=== PATIENT | female | born 1995 | race Caucasian/White ===

== ENCOUNTER 2019-04-29 07:18 | Observation (INO) | payer OTHER ==
[~2019-04-29] VITALS: Ht 172.7 cm; Wt 122.6 kg
[2019-04-29] VITALS (12 sets, daily range): BP systolic 110–140; BP diastolic 53–66; PULSE 64–96; TEMP 97.9–98.2
[2019-04-29 07:56] LABS: COLLECTION METHOD CLEAN CATCH
[2019-04-29 07:59] LABS: BASO % 0.4 % (0.0-2.0); EOS # 0.2 (0.0-0.7); EOS % 1.9 % (0-4.0); GRAN # 4.6 (1.4-6.5); GRAN % 55.3 % (42.2-75.2); HEMATOCRIT 38.3 % (37.0-47.0); HEMOGLOBIN 12.8 g/dl (12.5-16.0); LYMPH # 2.6 (1.2-3.4); LYMPH % 31.8 % (20.0-51.0); MEAN CELL VOLUME 87 fl (80.0-100.0); MEAN CORPUSCULAR HEMOGLOBIN 29 pg (27.0-31.0); MEAN CORPUSCULAR HGB CONC 33 g/dl (33.0-37.0); MEAN PLATELET VOLUME 9.7 fl (7.4-10.4); MONO # 0.9 (0.1-0.6); MONO % 10.4 % (1.7-9.3); PLATELET COUNT 231 K/mm3 (130-400); RED BLOOD COUNT 4.38 M/mm3 (4.10-5.30); REDCELL DISTRIBUTION WIDTH-CV 12.8 % (11.5-14.5)
[2019-04-29 08:08] LABS: ALBUMIN 4.3 gm/dL (3.5-5.0); BILIRUBIN,TOTAL 0.2 mg/dL (0.0-1.0); CALCIUM 9.6 mg/dL (8.4-10.2); CREATININE, serum 0.74 (0.52-1.25); POTASSIUM 3.7 mmol/L (3.4-5.0); TOTAL PROTEIN 7.6 gm/dL (6.4-8.2)
[2019-04-29 08:08] LABS: MUCOUS Present /lpf; PH 6 (5-8); URINE APPEARANCE Hazy; URINE BACTERIA None Seen /hpf; URINE BILIRUBIN Negative (NEGATIVE); URINE BLOOD Negative (NEGATIVE); URINE COLOR Yellow; URINE GLUCOSE Negative (NEGATIVE); URINE KETONE Negative (NEGATIVE); URINE LEUKOCYTE ESTERASE Negative (NEGATIVE); URINE NITRATE Negative (NEGATIVE); URINE PROTEIN(semi-quant) Negative (NEGATIVE); URINE RBC 0-2 /hpf; URINE UROBILINOGEN Negative (NEGATIVE)
--- NOTE | 2019-04-29 12:01 | NUR ---
Patient arrived to unit from ED. Alert and oriented with VSS. Patient c/o severe abdominal pain. PRN morphine given to patient. Patient resting in bed with NS at 125 and levaquin 100. Boyfriend in room with patient. No concerns at this time. Call light within reach, will continue to monitor
--- NOTE | 2019-04-29 17:22 | NUR ---
Pt arrived from PACU at 1715. Pt awake and alert and oriented. VSS. Denies pain at this time. States she is sleepy. 4lap sites. CD&I and covered with swiftset. Denies needs at this time. Call light within reach, will continue to monitor
--- NOTE | 2019-04-29 18:31 | NUR ---
Pt tolerating general diet well. She is now resting in bed. Call light within reach, will continue to monitor
--- NOTE | 2019-04-29 20:50 | NUR ---
Medicated with Motrin 600mg po for pain to abdomen 10/11. Has been up to bathroom to void x1.
--- NOTE | 2019-04-29 23:25 | NUR ---
Patient has been up in hallways ambulating with steady gait. Medicated with Aquilla 5/325mg 1 tab po for 4/10 pain to abdomen. Lap sites x4 dry/glued. Taking oral fluids well.
[2019-04-30 03:26] VITALS: BP 105/44; PULSE 75; TEMP 98.7
--- NOTE | 2019-04-30 05:00 | NUR ---
Patient denies need for pain meds at this time.
--- NOTE | 2019-04-30 07:06 | NUR ---
REPORT FROM AARON [facility]ILL.
[2019-04-30 07:34] VITALS: BP 111/55; PULSE 66; TEMP 97.7
[2019-04-30 11:39] VITALS: BP 105/51; PULSE 76; TEMP 97.9
[2019-04-30] MEDS ORDERED: NORCO 325 MG-51 TAB PO (11:43)
--- NOTE | 2019-04-30 12:28 | NUR ---
DR. DEL TORO IN TO DISCHARGE PT. NEW ORDERS RECIEVED. PT DOING WELL, VSS, PT HAS HAD MINIMAL PAIN. DISCHARGE INSTRUCTIONS PROVIDED AND QUESTIONS ANSWERED. PT GOING HOME AFTER BOYFRIEND RETURNS.
--- NOTE | 2019-04-30 13:31 | NUR ---
PT WALKED OUT WITH STAFF.
== END 2019-04-30 13:32 | disposition home or self-care (01) ==
LOC: COL.ER 07:18 → SURG 09:44
PROVIDERS: Emergency Medicine; ADMIT Surgery
DX: K80.00 Calculus of gallbladder with acute cholecystitis without obstruction (principal); K21.9 Gastro-esophageal reflux disease without esophagitis; E66.01 Morbid (severe) obesity due to excess calories; F32.9 Major depressive disorder, single episode, unspecified; F41.9 Anxiety disorder, unspecified
CPT/HCPCS: A4216; G0378; J0690; J0780; J1100; J1170; J1200; J1885; J1956; J2250; J2270; J2405; J2704; J3010; J7030; J7120